=== PATIENT | male | born 1995 | race African-American/Black ===

== ENCOUNTER 2021-03-30 20:16 | Emergency (ER) | payer SELFPAY ==
[~2021-03-30] VITALS: Ht 170.2 cm; Wt 68.7 kg
[2021-03-30 20:41] VITALS: BP 147/93
[2021-03-30] MEDS ORDERED: AMOXICILLIN/K CLAV 875/125MG TABLET. PO ONE (21:15)
[2021-03-30] MEDS ORDERED: CLINDAMYCIN HCL 150 MG CAPSULE PO ONE (21:15)
[2021-03-30] MEDS ORDERED: HYDROcodone/APAP 5/325MG 1 TAB TABLET PO ONE (21:15)
[2021-03-30] MEDS ORDERED: IBUPROFEN 600 MG TABLET. PO ONE (21:15)
[2021-03-30] MEDS ORDERED: HYDR-2155 PO (21:25)
[2021-03-30] MEDS ORDERED: AMOX1TAB61 PO (21:25)
--- NOTE | 2021-03-30 21:26 | PHYS DOC ---
Past History Past Medical History: No Pertinent History, Hypertension Past Surgical History: No Surgical History Alcohol Use: None Adult General Chief Complaint Chief Complaint: DENTAL PROBLEM HPI HPI Patient is a 26-year-old male who presents with dental pain and concern for dental infection. States it started about 2 days ago in his right lower molar right along the gumline. States he has poor dentition generally. Denies any fevers, pain or trouble swallowing, chest pain, shortness of breath, abdominal pain, nausea, vomiting. States he does not have a dentist and has not had time to find one yet but would like information on local dentists. Review of Systems Review of Systems Review of systems otherwise unremarkable except noted in HPI Allergies Allergies Allergies Coded Allergies Type Severity Reaction Last Updated Verified No Known Drug Allergies 03/30/21 No Physical Exam Physical Exam Constitutional: Well developed, well nourished, no acute distress, non-toxic appearance. [] HENT: Normocephalic, atraumatic, bilateral external ears normal, oropharynx moist, no oral exudates, nose normal. Patient appears to have a small abscess on outer gum just inferior to right lower molar. Upon inspection, abscess opened up and drained. [] Eyes: conjunctiva normal, no discharge. [] Neck: Normal range of motion, no tenderness, supple, no stridor, no lymphadenopathy. [] Cardiovascular:Heart rate regular rhythm, no murmur [] Lungs & Thorax: Bilateral breath sounds clear to auscultation [] Extremities: No tenderness, no cyanosis, no clubbing, ROM intact, no edema. [] Neurologic: Alert and oriented X 3, normal motor function, normal sensory function, no focal deficits noted. [] Psychologic: Affect normal, judgement normal, mood normal. [] Current Patient Data Vital Signs Vital Signs Date Time Temp Pulse Resp B/P (MAP) Pulse Ox O2 Delivery O2 Flow Rate FiO2 03/30/21 20:41 99.1 94 20 147/93 (111) 96 Room Air EKG EKG [] Radiology/Procedures Radiology/Procedures [] Heart Score C/O Chest Pain: No Risk Factors: Risk Factors: DM, Current or recent (<one month) smoker, HTN, HLP, family history of CAD, obesity. Risk Scores: Risk Factors: DM, Current or recent (<one month) smoker, HTN, HLP, family history of CAD, obesity. Course & Med Decision Making Course & Med Decision Making Patient is a 26-year-old male who presents with dental pain and infection Vital signs not concerning. Physical exam noted above. Upon inspection, gum abscess opened up and drained. Tooth does appear damaged and there is likely a deeper infection that need evaluated by dentist. Patient started on antibiotics in the emergency department. Given pain medication in the emergency department and advised on pain management at home. Gave contact information for local dentist and free clinics. Gave contact information for emergency dentist. Advised to contact first thing in the morning to discuss ED visit and set up a follow-up appointment for reevaluation and possible tooth extraction as soon as possible. Gave strict return precautions to the emergency department. Patient grateful, verbalized understanding and agreed with plan of discharge. [] Dragon Disclaimer Dragon Disclaimer This electronic medical record was generated, in whole or in part, using a voice recognition dictation system. Departure Departure: Impression: Primary Impression: Pain, dental Additional Impression: Dental abscess Disposition: HOME / SELF CARE / HOMELESS Condition: GOOD Referrals: PCP,NO (PCP) CHUNG DONAHUE MD Patient Instructions: Dental Abscess, Dental Pain Additional Instructions: Thank you for coming into the emergency department tonight and allowing us to take care of you. As discussed it appears that you have a damaged tooth and probable infection with a small abscess that popped in the emergency department that needs evaluation by dentist. You were started on antibiotics in the emergency department and started on pain medication as well. You were given a resource packet for local free clinics, and your dentist as well as contact information for an emergency dentist that could see you same day. Please call the emergency dental center first thing in the morning at [phone] and try to get an appointment for tomorrow or as soon as possible. Please also call the other numbers provided for local dentistry. Please come back to the emergency department immediately with new or concerning symptoms or if you are unable to get into see a dentist in the next several days for reevaluation. Scripts Hydrocodone Bit/Acetaminophen (HYDROCODONE-APAP 5-325 ) 1 Each Tablet 1 TAB PO PRN Q6HRS PRN for dental pain for 5 Days, #20 TAB 0 Refills Prov: ZACH LUNA MD 03/30/21 Amoxicillin/Potassium Clav (AUGMENTIN 875-125 TABLET) 1 Each Tablet 1 TAB PO BID for dental infection for 10 Days, #20 TAB 0 Refills Prov: ZACH LUNA MD 03/30/21 Problem Qualifiers ZACH LUNA MD Mar 30, 2021 21:26
== END 2021-03-30 21:30 | disposition home or self-care (01) ==
LOC: ER 20:16
DX: K04.7 Periapical abscess without sinus (principal); I10 Essential (primary) hypertension
CPT/HCPCS: 99284

== ENCOUNTER 2021-04-12 22:36 | Emergency (ER) | payer SELFPAY ==
[~2021-04-12] VITALS: Ht 170.2 cm; Wt 68.0 kg
[~2021-04-12 22:36] MED LIST: AMOX1TAB61 PO; HYDR-2155 PO
[2021-04-12 23:00] VITALS: BP 129/77
--- NOTE | 2021-04-12 23:14 | PHYS DOC ---
Past History Past Medical History: No Pertinent History, Hypertension Past Surgical History: No Surgical History Alcohol Use: None General Adult EDM: Chief Complaint: CLAVICLE INJURY HPI: HPI: ". I was playing foot ball and went down with out my arm and and felt a pop in my shoulder and chest..." Patient is a 26 year old male who presents with complaints of Lt. clavicle fracture. Pt. states he had injured the shoulder and clavicle area earlier in the week but had a repeat injury today. Patient does have sensation in his right deltoid area. Has a large hematoma over distal right clavicle. Distal neurovascular and right arm and hand is intact. Patient denies any other injury with the fall during the football game. Patient denies other injury during the fall. Patient denies any recent travel. Patient denies any specific ill contacts. Patient normally healthy. No immunosuppression. Review of Systems: Review of Systems: Constitutional: Denies fever or chills Eyes: Denies change in visual acuity HENT: Denies nasal congestion or sore throat Respiratory: Denies cough or shortness of breath Cardiovascular: Complains of right clavicle fracture and chest pain GI: Denies abdominal pain, nausea, vomiting, bloody stools or diarrhea : Denies dysuria Musculoskeletal: Denies back pain or joint pain Integument: Denies rash Neurologic: Denies headache, focal weakness or sensory changes Endocrine: Denies polyuria or polydipsia Lymphatic: Denies swollen glands Psychiatric: Denies depression or anxiety Family History: Family History: Noncontributory to presentation Current Medications: Current Meds: See nursing for home medications Allergies: Allergies: Allergies Coded Allergies Type Severity Reaction Last Updated Verified No Known Drug Allergies 03/30/21 No Physical Exam: PE: Constitutional: Well developed, well nourished, in moderate acute distress, non- toxic appearance. [] HENT: Normocephalic, atraumatic, bilateral external ears normal, oropharynx [address], no oral exudates, nose normal. [] Eyes: PERRLA, EOMI, conjunctiva normal, no discharge. [] Neck: Normal range of motion, no tenderness, supple, no stridor. [] Cardiovascular:Heart rate regular rhythm, no murmur [] Lungs & Thorax: Bilateral breath sounds clear to auscultation. Marked enlarged right clavicle hematoma and obvious fracture findings. Abdomen: Bowel sounds normal, soft, no tenderness, no masses, no pulsatile masses. [] Skin: Warm, dry, no erythema, no rash. [] Back: No tenderness, no CVA tenderness. [] Extremities: No tenderness, no cyanosis, no clubbing, ROM intact, no edema. [] Neurologic: Alert and oriented X 3, normal motor function, normal sensory function, no focal deficits noted. [] Psychologic: Affect anxious, judgement normal, mood normal. [] EKG: EKG: [] Radiology/Procedures: Radiology/Procedures: [][place] [id number] IMAGING REPORT Signed PATIENT: HUEY MENDOZA ACCOUNT: [id number] : 1995 LOCATION: ER AGE: 26 SEX: M EXAM STATUS: DEP ER ORD. PHYSICIAN: GULILERMO ESPINOZA MD REASON: injury PROCEDURE: CLAVICLE RIGHT XR RIGHT CLAVICLE DATE: 04/12/2021 12:09 AM INDICATION: injury COMPARISON: None. FINDINGS: Bones: Acute comminuted and displaced fracture of the mid clavicle. Joints: The joint spaces are normal. The acromiohumeral distance is not narrowed. Miscellaneous: No abnormal soft tissue calcifications in the shoulder. IMPRESSION: Acute comminuted and displaced fracture of the mid clavicle Electronically signed by: Matthew Wright MD (04/13/2021 4:08 AM) [facility] DICTATED AND SIGNED BY: MATTHEW WRIGHT MD DATE: 04/13/21 0408 CC: GUILLERMO ESPINOZA MD; PCP,NO ~MTH0 0 Heart Score: C/O Chest Pain: N/A Risk Factors: Risk Factors: DM, Current or recent (<one month) smoker, HTN, HLP, family history of CAD, obesity. Risk Scores: Score 0 - 3: 2.5% MACE over next 6 weeks - Discharge Home Score 4 - 6: 20.3% MACE over next 6 weeks - Admit for Clinical Observation Score 7 - 10: 72.7% MACE over next 6 weeks - Early Invasive Strategies Course & Med Decision Making: Course & Med Decision Making Pertinent Labs and Imaging studies reviewed. (See chart for details) Patient is continue ice packs as needed. Patient take Tylenol and ibuprofen for pain. For marked pain may take Vicoprofen up to 4 times a day. Patient to follow-up with orthopedics. Patient given the number for [facility] orthopedics. Patient to wear a sling. Patient return if any concerns. Impression: 1. Comminuted and displaced mid right clavicle fracture [] Dragon Disclaimer: Mikayla Disclaimer: This electronic medical record was generated, in whole or in part, using a voice recognition dictation system. Departure Departure: Referrals: PCP,NO (PCP) Scripts Hydrocodone/Ibuprofen (HYDROCODONE-IBUPROFEN 7.5-200 ) 1 Each Tablet 1 TAB PO PRN Q6HRS PRN for PAIN, #30 TAB 0 Refills Prov: GUILLERMO ESPINOZA MD 04/13/21 GUILLERMO ESPINOZA MD Apr 12, 2021 23:14
[2021-04-13] MEDS ORDERED: HYDROcodon/IBUPROFEN 7.5/200MG 1 TAB TABLET PO ONE (02:30)
[2021-04-13] MEDS ORDERED: HYDR-1179 PO (03:09)
--- NOTE | 2021-04-13 04:11 | RAD ---
XR RIGHT CLAVICLE DATE: 04/12/2021 12:09 AM INDICATION: injury COMPARISON: None. FINDINGS: Bones: Acute comminuted and displaced fracture of the mid clavicle. Joints: The joint spaces are normal. The acromiohumeral distance is not narrowed. Miscellaneous: No abnormal soft tissue calcifications in the shoulder. IMPRESSION: Acute comminuted and displaced fracture of the mid clavicle Electronically signed by: Lalo Hart MD (04/13/2021 4:08 AM) [facility]
== END 2021-04-13 02:45 | disposition home or self-care (01) ==
LOC: ER 22:36
DX: S42.001A Fracture of unspecified part of right clavicle, initial encounter for closed fracture (principal); I10 Essential (primary) hypertension; X50.9XXA Other and unspecified overexertion or strenuous movements or postures, initial encounter; Y93.61 Activity, american tackle football; Y92.89 Other specified places as the place of occurrence of the external cause; Y99.8 Other external cause status
CPT/HCPCS: 73000; 99283

== ENCOUNTER 2021-05-04 18:31 | Emergency (ER) | payer SELFPAY ==
[~2021-05-04] VITALS: Ht 170.2 cm; Wt 68.0 kg
[~2021-05-04 18:31] MED LIST changes: +HYDR-1179 PO
--- NOTE | 2021-05-04 19:51 | PHYS DOC ---
Past History Past Medical History: No Pertinent History (NAHUM LIZAMA APRN) Past Surgical History: No Surgical History (NAHUM LIZAMA APRN) Alcohol Use: None (NAHUM LIZAMA APRN) General Adult EDM: Chief Complaint: DENTAL PROBLEM HPI: HPI: Patient is a 26-year-old male who presents with abscess to left lower molar. Patient was seen here 1 month ago and placed on antibiotics. Patient reports that he took antibiotics in full. Patient still reporting pain. Patient reports taking Tylenol prior to arrival with little relief. Patient denies obtaining a dentist. Denies fevers. Patient is still able to tolerate p.o. Food/liquids. Denies health history. (NAHUM LIZAMA APRN) Review of Systems: Review of Systems: Constitutional: Denies fever or chills Eyes: Denies change in visual acuity HENT: Reports left, lower tooth pain Respiratory: Denies cough or shortness of breath Cardiovascular: Denies chest pain or edema GI: Denies abdominal pain, nausea, vomiting, bloody stools or diarrhea : Denies dysuria Musculoskeletal: Denies back pain or joint pain Integument: Denies rash Neurologic: Denies headache, focal weakness or sensory changes Endocrine: Denies polyuria or polydipsia Lymphatic: Denies swollen glands Psychiatric: Denies depression or anxiety (NAHUM LIZAMA APRN) Allergies: Allergies: Allergies Coded Allergies Type Severity Reaction Last Updated Verified No Known Drug Allergies 03/30/21 No (NAHUM LIZAMA APRN) Physical Exam: PE: Constitutional: Well developed, well nourished, no acute distress, non-toxic appearance. [] HENT: Normocephalic, atraumatic, bilateral external ears normal, oropharynx moist, no oral exudates, left, lower abscess to tooth Eyes: PERRLA, EOMI, conjunctiva normal, no discharge. [] Neck: Normal range of motion, no tenderness, supple, no stridor. [] Cardiovascular:Heart rate regular rhythm, no murmur [] Lungs & Thorax: Bilateral breath sounds clear to auscultation [] Abdomen: Bowel sounds normal, soft, no tenderness, no masses, no pulsatile masses. [] Skin: Warm, dry, no erythema, no rash. [] Back: No tenderness, no CVA tenderness. [] Extremities: No tenderness, no cyanosis, no clubbing, ROM intact, no edema. [] Neurologic: Alert and oriented X 3, normal motor function, normal sensory function, no focal deficits noted. [] Psychologic: Affect normal, judgement normal, mood normal. [] (NAHUM LIZAMA APRN) EKG: EKG: [] (NAHUM LIZAMA APRN) Radiology/Procedures: Radiology/Procedures: [] (NAHUM LIZAMA APRN) Heart Score: C/O Chest Pain: No Risk Factors: Risk Factors: DM, Current or recent (<one month) smoker, HTN, HLP, family history of CAD, obesity. Risk Scores: Score 0 - 3: 2.5% MACE over next 6 weeks - Discharge Home Score 4 - 6: 20.3% MACE over next 6 weeks - Admit for Clinical Observation Score 7 - 10: 72.7% MACE over next 6 weeks - Early Invasive Strategies (NAHUM LIZAMA APRN) Course & Med Decision Making: Course & Med Decision Making Pertinent Labs and Imaging studies reviewed. (See chart for details) [] 26-year-old male who presents with abscess to left lower molar. Patient was seen 1 month ago and placed on antibiotics. Patient reports that he did complete antibiotics in full. Patient reports taking Tylenol prior to a arrival with no relief. Patient given 5/325 of hydrocodone. Patient also has left- sided facial swelling. Patient given 1 dose of antibiotics in the ER. Patient sent home with antibiotic, clindamycin and resources for a dentist. Discussed with patient that he needs to follow-up with a dentist or symptoms will reoccur. Patient can take ibuprofen and Tylenol at home for discomfort. Patient is hemodynamically stable. CT of face ordered to rule out deeper infection/abscess. Patient is refusing CT due to wanting to leave the emergency room. Patient was very defensive and argumentative. Gave patient strict return precautions and signs to look out for due to facial swelling. Patient stated that he understood discharge instructions and return precautions. Patient was also apologetic for yelling. Patient was appreciative upon discharge. (NAHUM LIZAMA APRN) Dragon Disclaimer: Dragon Disclaimer: This electronic medical record was generated, in whole or in part, using a voice recognition dictation system. (NAHUM LIZAMA APRN) Departure Departure: Impression: Primary Impression: Abscess, dental Disposition: HOME / SELF CARE / HOMELESS Condition: STABLE Referrals: PCP,NO (PCP) Patient Instructions: Dental Abscess Additional Instructions: You were seen in the emergency room for left lower dental pain. I am sending you home with a prescription for clindamycin. Please make sure you take the prescription in full. You need to call one of the dentist that are listed on the resource list to set up an appointment. Otherwise this problem will continue to occur. You can take ibuprofen and Tylenol at home for discomfort. Return to the emergency room if you have worsening symptoms or concerns. EMERGENCY DEPARTMENT GENERAL DISCHARGE INSTRUCTIONS Thank you for coming to [facility] (ED) today and trusting us with you care. We trust that you had a positivie experience in our Emergency Department. If you wish to speak to the department management, you may call the director at [phone]. YOUR FOLLOW UP INSTRUCTIONS ARE FOLLOWS: 1. Do you have a private Doctor? If you do not have a private doctor, please ask for a resource list of physicians or clinics that may be able to assist you with follow up care. 2. The Emergency Physician has interpreted your x-rays. The X-Ray specialist w ill also review them. If there is a change in the findings, you will be notified in 48 hours when at all possible. 3. A lab test or culture has been done, your results will be reviewed and you will be notified if you need a change in treatment. ADDITIONAL INSTRUCTIONS AND INFORMATION: 1. Your care today has been supervised by a physician who is specially trained in emergency care. Many problems require more than one evaluation for a complete diagnosis and treatment. We recommend that you schedule your follow up appointment as recommended to ensure complete treatment of you illness or injury. If you are unable to obtain follow up care and continue to have a problem, or if your condition worsens, we recommend that you return to the ED. 2. We are not able to safely determine your condition over the phone nor are we able to give sound medical advice over the phone. For these safety reasons, if you call for medical advice we will ask you to come to the ED for further evaluation. 3. If you have any questions regarding these discharge instructions please call the ED at [phone]. SAFETY INFORMATION: In the interest of safety, wellness, and injury prevention; we encourage you to wear your sealbelt, if you smoke; quite smoking, and we encourage family to use a protective helmet for bicycling and other sporting events that present an increased risk for head injury. IF YOUR SYMPTOMS WORSEN OR NEW SYMPTOMS DEVELOP, OR YOU HAVE CONCERNS ABOUT YOUR CONDITION; OR IF YOUR CONDITION WORSENS WHILE YOU ARE WAITING FOR YOUR FOLLOW UP APPOINTMENT; EITHER CONTACT YOUR PRIMARY CARE DOCTOR, THE PHYSICIAN WHOSE NAME AND NUMBER YOU WERE GIVEN, OR RETURN TO THE ED IMMEDIATELY. Scripts Clindamycin Hcl (CLEOCIN HCL) 300 Mg Capsule 1 CAP PO TID for dental abscess for 7 Days, #21 CAP Prov: NAHUM LIZAMA APRN 05/04/21 Attending Signature Attending Signature I have participated in the care of this patient and I have reviewed and agree with all pertinent clinical information above including history, exam, and recommendations. (GUILLERMO ESPINOZA MD) NAHUM LIZAMA APRN May 04, 2021 19:51 GUILLERMO ESPINOZA MD May 07, 2021 07:04
[2021-05-04] MEDS ORDERED: CLIN300C3 PO (20:07)
[2021-05-04] MEDS ORDERED: IOHEXOL 300 MG/ML 75 ML VIAL. IV ONE (20:30)
[2021-05-04] MEDS ORDERED: CONTRAST GIVEN. MC PRN (20:30)
[2021-05-04 21:10] VITALS: BP 116/62
[2021-05-04] MEDS ORDERED: CLINDAMYCIN HCL 150 MG CAPSULE PO ONE (21:30)
[2021-05-04] MEDS ORDERED: HYDROcodone/APAP 5/325MG 1 TAB TABLET PO ONE (21:30)
== END 2021-05-04 21:10 | disposition home or self-care (01) ==
LOC: ER 18:31
DX: K04.7 Periapical abscess without sinus (principal)
CPT/HCPCS: 99283

== ENCOUNTER 2021-05-07 04:32 | Emergency (ER) | payer SELFPAY ==
[~2021-05-07] VITALS: Ht 171.4 cm; Wt 67.6 kg
[~2021-05-07 04:32] MED LIST changes: +CLIN300C3 PO
--- NOTE | 2021-05-07 04:46 | PHYS DOC ---
Past History Past Medical History: No Pertinent History (GUILLERMO ESPINOZA MD) Past Surgical History: No Surgical History (GUILLERMO ESPINOZA MD) Alcohol Use: None (GUILLERMO ESPINOZA MD) General Adult EDM: Chief Complaint: DENTAL PROBLEM HPI: HPI: ".. I got a dental infection... I was here the other day.. the swelling was on the Lt. side before.. but no it is on the Rt. .. I did go a [facility] on the [facility]. and they are to call me back for an apt... I am having problems swallowing now.. " Patient is a 26 year old male who presents with above hx and complaints of dental and throat pain. Patient was seen on 05/04 for these complaints. At that time he refused CT evaluation. Patient has had 6 recent multiple dental complaints. 1 month ago he received antibiotics for dental infections and did complete the course of antibiotics. Patient this morning states he is having more difficulty swallowing and has not gotten his last prescription for clindamycin filled as yet. Patient localizes dental pain to tooth #30. Patient localizes throat pain more to the right per tonsillar area and under his tongue. (GUILLERMO ESPINOZA MD) Review of Systems: Review of Systems: Constitutional: Denies fever or chills Eyes: Denies change in visual acuity HENT: Complains of dental pain and sore throat Respiratory: Denies cough or shortness of breath Cardiovascular: Denies chest pain or edema GI: Denies abdominal pain, nausea, vomiting, bloody stools or diarrhea : Denies dysuria Musculoskeletal: Denies back pain or joint pain Integument: Denies rash Neurologic: Denies headache, focal weakness or sensory changes Endocrine: Denies polyuria or polydipsia Lymphatic: Denies swollen glands Psychiatric: Denies depression or anxiety (GUILLERMO ESPINOZA MD) Family History: Family History: noncontributory presentation (GUILLERMO ESPINOZA MD) Current Medications: Current Meds: See nursing for home meds (GUILLERMO ESPINOZA MD) Allergies: Allergies: Allergies Coded Allergies Type Severity Reaction Last Updated Verified No Known Drug Allergies 03/30/21 No (GUILLERMO ESPINOZA MD) Physical Exam: PE: Constitutional: Well developed, well nourished, moderate acute distress, non- toxic appearance. [] HENT: Normocephalic, contusions and abrasions to face and scalp, appear old, bilateral external ears normal, oropharynx moist, no oral exudates, nose normal. Extensive dental decay. Impaired tonsillar and pronation and swelling particularly on right Eyes: PERRLA, EOMI, conjunctiva normal, no discharge. [] Neck: Normal range of motion, no tenderness, supple, no stridor. [] Cardiovascular:Heart rate regular rhythm, no murmur [] Lungs & Thorax: Bilateral breath sounds equal apex with scattered wheezes on auscultation [] Abdomen: Bowel sounds normal, soft, no tenderness, no masses, no pulsatile masses. [] Skin: Warm, dry, no erythema, no rash. [] Back: No tenderness, no CVA tenderness. [] Extremities: No tenderness, no cyanosis, no clubbing, ROM intact, no edema. [] Neurologic: Alert and oriented X 3, normal motor function, normal sensory function, no focal deficits noted. [] Psychologic: Affect anxious, judgement normal, mood normal. [] (GUILLERMO ESPINOZA MD) EKG: EKG: [] (GUILLERMO ESPINOZA MD) Radiology/Procedures: Radiology/Procedures: [][place] [address] IMAGING REPORT Signed PATIENT: CANDACE MCKINNEY VACCOUNT: [id number] : 08/06/1957 LOCATION: ER AGE: 63 SEX: M EXAM STATUS: REG ER ORD. PHYSICIAN: GUILLERMO ESPINOZA MD REASON: toe in fection in diabetic PROCEDURE: FOOT LEFT 3V Exam: Left foot 3 views INDICATION: Toe infection TECHNIQUE: Frontal, lateral and oblique views of the left foot Comparisons: None FINDINGS: Soft tissue swelling at the forefoot. Bone mineralization is normal. No acute or healed fractures. Joint spaces are well-maintained. IMPRESSION: Soft tissue swelling at the forefoot without underlying osseous abnormality identified. Electronically signed by: Tran Lyle MD (05/06/2021 7:32 PM) [facility] DICTATED AND SIGNED BY: TRAN LYLE MD DATE: 05/06/211929 CC: GUILLERMO ESPINOZA MD; MOLLY WHITAKER MD ~MTH0 0 (GUILLERMO ESPINOZA MD) Radiology/Procedures: IMAGING REPORT Signed PATIENT: HUEY IRIZARRY ACCOUNT: [id number] : 1995 LOCATION: ER AGE: 26 SEX: M EXAM STATUS: REG ER ORD. PHYSICIAN: GUILLERMO ESPINOZA MD REASON: OMNI 300,75ML IV. Dysphagia, eval for abscess PROCEDURE: CT SOFT TISSUE NECK W/CONTRAST CT NECK SOFT TISSUE WITH IV CONTRAST DATE: 05/07/2021 4:55 AM INDICATION: Dysphagia, eval for abscess TECHNIQUE: Axial computed tomography of the neck with intravenous contrast according to the standard neck protocol. 75 cc of Omnipaque 300 was administered intravenously. One or more of the following dose reduction techniques were utilized: Automated exposure control (AEC), Adjustment of mA and/or kV according to patient size, Use of iterative reconstruction technique such as ASiR, CT scan done according to ALARA and image gently/image wisely COMPARISON: None. FINDINGS: Poor dentition with multiple dental caries and periapical lucencies. Prominent periapical lucency involving the right central and right lateral maxillary incisors extends through the cortex along the buccal surface of the alveolar ridge and there is a thin amount of fluid adjacent with peripheral enhancement. Mildly enlarged adenoids, lingual tonsils, and palatine tonsils. No retropharyngeal collection. Scattered bilateral mildly enlarged cervical lymph nodes. The parotid, submandibular, and thyroid glands are normal. The muscles of the neck are normal. Vessels of the neck demonstrate normal course, caliber, and enhancement. The visualized posterior fossa and brain is unremarkable. The visualized orbits and paranasal sinuses are normal. The cervical spine is normal. The visualized lung apices are clear. IMPRESSION: Poor dentition with multiple dental caries and periapical lucencies. Periapical lucency involving the right central and lateral maxillary incisors extends anteriorly through the cortex and there is a thin adjacent collection concerning for an abscess. Electronically signed by: Matthew Wright MD (05/07/2021 5:44 AM) [facility] DICTATED AND SIGNED BY: MATTHEW WRIGHT MD DATE: 05/07/21530 CC: GUILLERMO ESPINOZA MD; PCP,NO ~MTH0 0 (PERLA THOMAS DO) Heart Score: C/O Chest Pain: N/A Risk Factors: Risk Factors: DM, Current or recent (<one month) smoker, HTN, HLP, family history of CAD, obesity. Risk Scores: Score 0 - 3: 2.5% MACE over next 6 weeks - Discharge Home Score 4 - 6: 20.3% MACE over next 6 weeks - Admit for Clinical Observation Score 7 - 10: 72.7% MACE over next 6 weeks - Early Invasive Strategies (GUILLERMO ESPINOZA MD) Course & Med Decision Making: Course & Med Decision Making Pertinent Labs and Imaging studies reviewed. (See chart for details) Must follow-up with dentist. Take antibiotics as directed. Impression: 1. Multiple areas of dental decay and gingivitis 2. Dental infections 3. Abscess. Endorse to Dr. Thomas at shift change. [] (GUILLERMO ESPINOZA MD) Course & Med Decision Making Concern for multiple dental caries with visible periapical abscess over tooth number 1. Patient afebrile, speaking full sentences, nontoxic appearing. Has not refilled his antibiotics and has reached out to [facility] to establish care. Recommend [id number] analgesia and Orajel. Will discharge home with strict ED return precautions were given for neurologic deficits, head or neck swelling, speech changes or drooling. Encouraged urgent outpatient follow-up with PMD and dental clinic within 24 to 48 hours. Life- threatening processes were considered but are low suspicion at this time, given history, physical exam and ED workup. Pt was educated on all prescription medications and adverse effects. All patient's questions were answered and pt was stable at time of discharge. Life/limb-threatening differential includes but is not limited to, Camron's angina, infection (periodontal or peritonsillar abscess, retropharyngeal abscess, Vincents angina, ANUG, pharyngeal/sugar mill worker/buccal space infection), trauma or fracture, dental fracture/subluxation/avulsion, dental bleeding or hemorrhage/DIC, pulpitis, alveolar osteitis or neoplasm I have spoken with the patient and/or caregivers. I explained the patient's condition, diagnoses and treatment plan based on the information available to me at this time. I have answered the patient and/or caregiver's questions and addressed any concerns. The patient and/or caregivers have a good understanding of patient's diagnosis, condition and treatment plan as can be expected at this point. Vital signs have been stable. Patient's condition is stable and appropriate for discharge from the emergency department. Patient will pursue further outpatient evaluation with primary care physician or other designated or consulting physician as outlined in the discharge instructions. The patient and/or caregivers are agreeable to this plan of care and follow-up instructions have been explained in detail. The patient and/or caregivers have received these instructions in written form and have expressed an understanding of the discharge instructions. The patient and/or caregivers are aware that any significant change of condition or worsening of symptoms should prompt immediate return to this or the closest emergency department or call to [phone]. (PERLA THOMAS DO) Dragon Disclaimer: Dragon Disclaimer: This electronic medical record was generated, in whole or in part, using a voice recognition dictation system. (GUILLERMO ESPINOZA MD) Departure Departure: Impression: Primary Impression: Abscess, periapical Additional Impression: Dental caries Disposition: 01 HOME / SELF CARE / HOMELESS Condition: STABLE Referrals: PCP,NO (PCP) [facility]-Dr. Naidu or Dr. Hess for routine care [address], [facility] [address] [place] [address] Patient Instructions: Benzocaine mouth gel, ointment, solution, or dental paste, Dental Abscess, Dental Caries Additional Instructions: EMERGENCY DEPARTMENT GENERAL DISCHARGE INSTRUCTIONS Thank you for coming to [facility] (ED) today and trusting us with you care. We trust that you had a positivie experience in our Emergency Department. If you wish to speak to the department management, you may call the director at [phone]. YOUR FOLLOW UP INSTRUCTIONS ARE FOLLOWS: 1. Do you have a private Doctor? If you do not have a private doctor, please ask for a resource list of physicians or clinics that may be able to assist you with follow up care. ADDITIONAL INSTRUCTIONS AND INFORMATION: 1. Your care today has been supervised by a physician who is specially trained in emergency care. Many problems require more than one evaluation for a complete diagnosis and treatment. We recommend that you schedule your follow up appointment as recommended to ensure complete treatment of you illness or injury. If you are unable to obtain follow up care and continue to have a problem, or if your condition worsens, we recommend that you return to the ED. 2. We are not able to safely determine your condition over the phone nor are we able to give sound medical advice over the phone. For these safety reasons, if you call for medical advice we will ask you to come to the ED for further evaluation. 3. If you have any questions regarding these discharge instructions please call the ED at [phone]. SAFETY INFORMATION: In the interest of safety, wellness, and injury prevention; we encourage you to wear your sealbelt, if you smoke; quite smoking, and we encourage family to use a protective helmet for bicycling and other sporting events that present an increased risk for head injury. IF YOUR SYMPTOMS WORSEN OR NEW SYMPTOMS DEVELOP, OR YOU HAVE CONCERNS ABOUT YOUR CONDITION; OR IF YOUR CONDITION WORSENS WHILE YOU ARE WAITING FOR YOUR FOLLOW UP APPOINTMENT; EITHER CONTACT YOUR PRIMARY CARE DOCTOR, THE PHYSICIAN WHOSE NAME AND NUMBER YOU WERE GIVEN, OR RETURN TO THE ED IMMEDIATELY. Scripts Benzocaine/Menthol/Zinc Chlor (Orajel 3X Mouth Sores Gel) 5.1 Gm Gel..gram. 5.1 GM MM QID PRN for dental pain, #1 EACH Prov: PERLA THOMAS DO 05/07/21 GUILLERMO ESPINOZA MD May 07, 2021 04:46 PERLA THOMAS DO May 07, 2021 06:00
[2021-05-07] MEDS ORDERED: KETOROLAC 30 MG/ML VIAL. IVP ONE (05:00)
[2021-05-07] MEDS ORDERED: IOHEXOL 300 MG/ML 75 ML VIAL. IV ONE (05:00)
[2021-05-07] MEDS ORDERED: cefTRIAXone SODIUM 1 GM VIAL ONE (05:07)
[2021-05-07] MEDS ORDERED: IV NORMAL SALINE 50ML 50 ML ONE (05:07)
[2021-05-07] MEDS ORDERED: CONTRAST GIVEN. MC PRN (05:15)
[2021-05-07 05:38] LABS: BASO # 0.1 x10^3/uL (0.0-0.2); BASO % 1 % (0-3); EOS # 0.1 x10^3/uL (0.0-0.7); EOS % 2 % (0-3); HEMATOCRIT 37.6 % (39.0-53.0); HEMOGLOBIN 12.8 g/dL (13.0-17.5); LYMPH % 18 % (24-48); MEAN CORPUSCULAR HEMOGLOBIN 32 pg (25-35); MEAN CORPUSCULAR HGB CONC 34 g/dL (31-37); MEAN CORPUSCULAR VOLUME 93 fL (79-100); MONO # 0.7 x10^3/uL (0.0-1.1); MONO % 12 % (0-9); NEUT % 68 % (31-73); PLATELET COUNT 224 x10^3/uL (140-400); RED BLOOD COUNT 4.02 x10^6/uL (4.30-5.70); RED CELL DISTRIBUTION WIDTH 13.4 % (11.5-14.5); WHITE BLOOD COUNT 5.9 x10^3/uL (4.0-11.0)
[2021-05-07 05:41] LABS: CALCIUM 7.8 mg/dL (8.5-10.1); GFR 108.5; POTASSIUM 4.2 mmol/L (3.5-5.1)
--- NOTE | 2021-05-07 05:47 | RAD ---
CT NECK SOFT TISSUE WITH IV CONTRAST DATE: 05/07/2021 4:55 AM INDICATION: Dysphagia, eval for abscess TECHNIQUE: Axial computed tomography of the neck with intravenous contrast according to the standard neck protocol. 75 cc of Omnipaque 300 was administered intravenously. One or more of the following do se reduction techniques were utilized: Automated exposure control (AEC), Adjustment of mA and/or kV according to patient size, Use of iterative reconstruction technique such as ASiR, CT scan done accor ding to ALARA and image gently/image wisely COMPARISON: None. FINDINGS: Poor dentition with multiple dental caries and periapical lucencies. Prominent periapical lucency inv olving the right central and right lateral maxillary incisors extends through the cortex along the bu ccal surface of the alveolar ridge and there is a thin amount of fluid adjacent with peripheral enhan cement. Mildly enlarged adenoids, lingual tonsils, and palatine tonsils. No retropharyngeal collection. Scattered bilateral mildly enlarged cervical lymph nodes. The parotid, submandibular, and thyroid gla nds are normal. The muscles of the neck are normal. Vessels of the neck demonstrate normal course, ca liber, and enhancement. The visualized posterior fossa and brain is unremarkable. The visualized orbits and paranasal sinuses are normal. The cervical spine is normal. The visualized lung apices are clear. IMPRESSION: Poor dentition with multiple dental caries and periapical lucencies. Periapical lucency involving the right central and lateral maxillary incisors extends anteriorly through the cortex and there is a th in adjacent collection concerning for an abscess. Electronically signed by: Lalo Hart MD (05/07/2021 5:44 AM) [facility]
[2021-05-07] MEDS ORDERED: BENZ5.1G MM (06:00)
[2021-05-07 06:02] VITALS: BP 120/56
== END 2021-05-07 06:10 | disposition home or self-care (01) ==
LOC: ER 04:32
DX: K04.7 Periapical abscess without sinus (principal); K02.9 Dental caries, unspecified
CPT/HCPCS: 36415; 70491; 80048; 85025; 96361; 96365; 99285; J0696; J1885; Q9967